=== PATIENT | male | born 1950 | race Two or more races ===

== ENCOUNTER 2019-01-18 19:07 | Emergency (ER) | payer OTHER ==
[~2019-01-18] VITALS: Ht 170.2 cm; Wt 77.1 kg
--- NOTE | 2019-01-18 19:16 | NUR ---
ED Nurse Note: PT AMBULATED TO ED C/O RIGHT SHOULDER PAIN S/P FALL OF 3 FOOT PODIUM AT WORK AT 1715 TODAY. PT STATES PAIN HAS INCREAED FROM 11/06 TO 01/07 SINCE THE OCCURENCE. AREA IS DRY AND INTACT.
[2019-01-18 19:17] VITALS: BP 127/78
--- NOTE | 2019-01-18 19:29 | NUR ---
ED Nurse Note: PT TAKEN TO XRAY
--- NOTE | 2019-01-18 19:38 | NUR ---
ED Nurse Note: PT RETURNED FROM XRAY
[2019-01-18] MEDS ORDERED: Ketorolac 30mg Inj ONE (19:48)
--- NOTE | 2019-01-18 19:53 | Diagnostic Imaging Report ---
EXAM: XR Right Shoulder Complete, 2 or More Views CLINICAL HISTORY: TRAUMA TECHNIQUE: Two or more views of the right shoulder. COMPARISON: No relevant prior studies available. FINDINGS: Bones joints: Mild acromioclavicular joint arthrosis. Degenerative findings in the humeral head at the rotator cuff insertions. Osteopenia. Otherwise unremarkable bones. No acute fracture. No dislocation. Soft tissues: Unremarkable. IMPRESSION: 1. No acute osseous abnormality. 2. Mild acromioclavicular joint arthrosis. Degenerative findings in the humeral head at the rotator cuff insertions. Osteopenia. Otherwise unremarkable bones.
[2019-01-18] MEDS ORDERED: Ketorolac 30mg Inj IM ONE (20:00)
--- NOTE | 2019-01-18 20:09 | Emergency Room Report ---
History of Present Illness General Chief Complaint: Upper Extremity Injury Source: Patient Present Illness HPI 68-year-old male with no significant past medical history here complaining of pain right shoulder that started few hours prior to arrival. Patient was at work ready to get on the stage to give a speech, where the podium fell and he tried to stop it as fell and landed on his right shoulder on the floor. Denies falling from any height. Rating the pain 10 out of 10 without radiation denying tingling numbness. Has not taken medication for pain. Denies all other injuries. No chest pain, shortness of breath, palpitation, no other associated symptoms. This is a Worker's Compensation case Allergies: Coded Allergies: No Known Allergies (Unverified , 01/18/19) Patient History Past Medical History: see triage record Past Surgical History: unable to obtain Pertinent Family History: none Immunizations: UTD Reviewed Nursing Documentation: PMH: Agreed; PSxH: Agreed Nursing Documentation-PMH Past Medical History: No Stated History Review of Systems All Other Systems: negative except mentioned in HPI Physical Exam Vital Signs Date Time Temp Pulse Resp B/P (MAP) Pulse Ox O2 Delivery O2 Flow Rate FiO2 01/18/19 19:12 97.7 53 16 127/78 (94) 96 Room Air Sp02 EP Interpretation: reviewed, normal General Appearance: no apparent distress, alert, GCS 15, non-toxic Head: normocephalic, atraumatic Eyes: bilateral eye normal inspection, bilateral eye PERRL ENT: hearing grossly normal, normal pharynx, no angioedema, normal voice Neck: full range of motion, supple/symm/no masses Respiratory: chest non-tender, lungs clear, normal breath sounds, speaking full sentences Cardiovascular #1: regular rate, rhythm, no edema Cardiovascular #2: 2+ radial (R), 2+ radial (L) Gastrointestinal: normal inspection, soft Genitourinary: no CVA tenderness Musculoskeletal: back normal, digits/nails normal, gait/station normal, normal range of motion, non-tender, no calf tenderness, pelvis stable, other - no impingement sign Neurologic: alert, oriented x3, responsive, motor strength/tone normal, sensory intact, speech normal Psychiatric: judgement/insight normal, memory normal, mood/affect normal, no suicidal/homicidal ideation Skin: no rash Lymphatic: no adenopathy Procedures Splinting Splinting : Consent: Verbal Location: right shoulder Pre-Proc Neuro Vasc Exam: normal Post-Proc Neuro Vasc Exam: normal Patient Tolerated: Well Complications: None Progress arm sling Medical Decision Making PA Attestation Diagnosis and treatment plans were reviewed and discussed with my supervising physician Dr. Umana Diagnostic Impression: Primary Impression: Shoulder contusion ER Course 68-year-old male with no significant past medical history here complaining of pain right shoulder that started few hours prior to arrival. Patient was at work ready to get on the stage to give a speech, where the podium fell and he tried to stop it as fell and landed on his right shoulder on the floor. Denies falling from any height. Rating the pain 10 out of 10 without radiation denying tingling numbness. Has not taken medication for pain. Denies all other injuries. No chest pain, shortness of breath, palpitation, no other associated symptoms. This is a Worker's Compensation case Ddx considered but are not limited to : Shoulder sprain versus strain versus contusion versus fracture versus rotator cuff tear Vital signs: are WNL, pt. is afebrile H&PE are most consistent with: Shoulder contusion ORDERS: shoulder Xray, ibuprofen, Robaxin ED INTERVENTIONS: Toradol, arm sling DISCHARGE: At this time pt. is stable for d/c to home. Will provide printed patient care instructions, and any necessary prescriptions. Care plan and follow up instructions have been discussed with the patient prior to discharge. Follow-up with your primary care provider if worsening symptoms return to the emergency room with redness physical activity Other X-Ray Diagnostic Results Other X-Ray Diagnostic Results : # of Views/Limited Vs Complete: 3 View Indication: Pain EP Interpretation: Yes PA Xray: Interpretation reviewed, by supervising MD, and agrees with findings. Interpretation: no dislocation, no soft tissue swelling, no fractures Impression: No acute disease Electronically Signed by: Christofer Mack Text IMPRESSION: 1. No acute osseous abnormality. 2. Mild acromioclavicular joint arthrosis. Degenerative findings in the humeral head at the rotator cuff insertions. Osteopenia. Otherwise unremarkable bones. Last Vital Signs Date Time Temp Pulse Resp B/P (MAP) Pulse Ox O2 Delivery O2 Flow Rate FiO2 01/18/19 19:17 97.7 53 16 127/78 96 Room Air Disposition: HOME, SELF-CARE Condition: Stable Scripts Methocarbamol* (ROBAXIN-500*) 500 Mg Tablet 500 MG ORAL TID PRN for For Pain, #15 TAB 0 Refills Prov: Christofer Yuan 01/18/19 Ibuprofen (Ibu) 800 Mg Tablet 800 MG PO TID, #21 TAB Prov: Christofer Yuan 01/18/19 Referrals: NOT CHOSEN IPA/MD,REFERRING (PCP) Patient Instructions: Contusion, [id number], Shoulder Pain Christofer Yuan Jan 18, 2019 20:09
[2019-01-18] MEDS ORDERED: IBU800 MG PO (20:10)
[2019-01-18] MEDS ORDERED: ROBAXIN-500MG ORAL (20:10)
[2019-01-18 20:18] VITALS: BP 124/73
--- NOTE | 2019-01-18 20:18 | NUR ---
ER DISCHARGE NOTE: Patient is cleared to be discharged per ERMD, pt is aox4, on room air, with stable vital signs. pt was given dc and prescription instructions, pt was able to verbalize understanding, pt id band removed. pt is able to ambulate with steady gait. pt took all belongings. arm sling placed
== END 2019-01-18 20:18 | disposition home or self-care (01) ==
LOC: EMR 19:32
DX: S40.011A Contusion of right shoulder, initial encounter (principal); W19.XXXA Unspecified fall, initial encounter; Y92.9 Unspecified place or not applicable; M19.011 Primary osteoarthritis, right shoulder; M85.811 Other specified disorders of bone density and structure, right shoulder
CPT/HCPCS: 29105; 73030; 96372; 99283; J1885